=== PATIENT | male | born 1955 | race Caucasian/White ===

== ENCOUNTER → 2018-12-31 | Day surgery (SDC) | payer MEDICARE, BC ==
[~2018-12-31] MED LIST: Propofol 200 MG/20 ML SDV IV ONE
[2018-12-31] MEDS: Lactated Ringers 1,000 ML IV SCH (07:37)
--- NOTE | 2018-12-31 11:25 | OR ---
DATE OF OPERATION: 12/31/2018 PREOPERATIVE DIAGNOSIS: SCREENING COLONOSCOPY. POSTOPERATIVE DIAGNOSIS: SCREENING COLONOSCOPY. SURGEON: Gera Ojeda MD PROCEDURE: FULL-LENGTH COLONOSCOPY. ANESTHESIA: MAC. COMPLICATIONS: None. SPECIMEN: None. FINDINGS: 1. Full-length colonoscopy. 2. No signs of any polyps. 3. Minimal sigmoid diverticulosis. RECOMMENDATIONS: Followup colonoscopy every 10 years. INDICATIONS: The patient was seen for routine physical. We recommended a screening colonoscopy as the patient was 10 years since his last. DESCRIPTION OF PROCEDURE: The patient was prepped and draped, placed in the left lateral decubitus position. A lubricated Olympus colonoscope was inserted and easily advanced to the cecum. Direct visualization of the ileocecal valve and appendiceal orifice was accomplished. The bowel prep was fine. Upon withdrawal of the scope throughout the entire length of the colon, I could find no signs of any polyps, masses, ulcerations, or bleeding sites. No vascular abnormalities or signs of colitis. There were a few scattered diverticula in the sigmoid area, but very minimal. Rectal vault was benign. Retroflexion showed no anal lesions. Air was suctioned, scope removed without complication. EDY/PARUL /[id number]
== END ==
LOC: CC.SDS 07:17
PROVIDERS: ATTEND Family Medicine
DX: Z12.11 Encounter for screening for malignant neoplasm of colon (principal); K57.30 Diverticulosis of large intestine without perforation or abscess without bleeding
CPT/HCPCS: J2704; J7120

== ENCOUNTER → 2021-01-25 | Day surgery (SDC) | payer MEDICARE, BC ==
[~2021-01-25] MED LIST changes: +Lactated Ringers 1,000 ML IV SCH; -Propofol 200 MG/20 ML SDV IV ONE; +Propofol 200 MG/20 ML SDV ONE
--- NOTE | 2021-01-26 13:04 | OR ---
DATE OF OPERATION: 01/25/2021 PREOPERATIVE DIAGNOSIS: IRON-DEFICIENCY ANEMIA. POSTOPERATIVE DIAGNOSIS: IRON-DEFICIENCY ANEMIA. SURGEON: Gera Ojeda MD PROCEDURE: DIAGNOSTIC ESOPHAGOGASTRODUODENOSCOPY WITH BIOPSIES X5, JUAN C. ANESTHESIA: MAC. COMPLICATIONS: None. SPECIMEN: 1. Marisol-pyloric biopsy x3. 2. Antral biopsy x2. 3. Distal esophageal biopsy x1. 4. Biopsies x6 with JUAN C. FINDINGS: 1. Full-length diagnostic EGD. 2. Diffuse and severe antral ulcers, multiple. 3. Marked marisol-pyloric thickening with mass-like effect. 4. Grade 1 linear reflux esophagitis. RECOMMENDATIONS: The patient will be placed on Protonix, told to stop any and all NSAIDs including his aspirin at this time, and he will have close followup for biopsy results. At a minimum, the patient will need a repeat EGD in 6 weeks to ensure healing. INDICATIONS: The patient presented for routine physical without symptoms including epigastric pain. He presented with a low-grade anemia I believe with a hemoglobin of 12, but his MCV was 77. We asked him to do Hemoccults and 3 were positive. He was referred for diagnostic EGD as he had a colonoscopy I believe within the last year or two which was fine. DESCRIPTION OF PROCEDURE: The patient was prepped and draped, placed in the left lateral decubitus position. A lubricated Olympus gastroscope was inserted over a bite-block, advanced to cricopharyngeus area, and easily intubated in the esophagus. The esophageal lining was benign until its most distal portion. The Z-line was crisp and sharp at 40 cm. There was 1 small linear area of esophagitis from reflux and a biopsy was taken of that. The scope was advanced into the stomach, through the pylorus, and into the second portion of the duodenum. This and the duodenal bulb were benign. The scope was brought back into the stomach and retroflexed. The upper fundus and cardia were unremarkable. Upon straightening, the rest of the fundus appeared benign. The antrum shows diffuse inflammation with multiple areas of ulceration and erosion. No active bleeding was found in the pyloric area. In the immediate marisol-pyloric area, the patient has marked gastric wall thickening and inflammation. It appears like there is a healing ulcer in the deep area of that which we could not get into to visualize. We did do 3 biopsies of this thickened tissue which needs to be ruled out for any dysplasia. Air was then suctioned from the stomach and the scope was removed complication. EDY/PARUL /[id number]
== END ==
LOC: CC.SDS 08:13
PROVIDERS: ATTEND Family Medicine
DX: K31.89 Other diseases of stomach and duodenum (principal); I78.1 Nevus, non-neoplastic; K22.10 Ulcer of esophagus without bleeding; K21.9 Gastro-esophageal reflux disease without esophagitis; D50.9 Iron deficiency anemia, unspecified; K25.9 Gastric ulcer, unspecified as acute or chronic, without hemorrhage or perforation; N40.0 Benign prostatic hyperplasia without lower urinary tract symptoms; I42.9 Cardiomyopathy, unspecified; N52.9 Male erectile dysfunction, unspecified; I10 Essential (primary) hypertension; E66.9 Obesity, unspecified; G47.33 Obstructive sleep apnea (adult) (pediatric); E11.9 Type 2 diabetes mellitus without complications; Z79.899 Other long term (current) drug therapy; Z79.4 Long term (current) use of insulin; Z79.84 Long term (current) use of oral hypoglycemic drugs; Z98.890 Other specified postprocedural states; Z68.38 Body mass index [BMI] 38.0-38.9, adult
CPT/HCPCS: 43239; 87081; J2704; J7120

== ENCOUNTER 2022-07-20 16:07 | Emergency (ER) | payer MEDICARE ==
[2022-07-20] MEDS ORDERED: Take Home: Doxycycline 100 MG Cap, 4 Cap Pack PO ONE (16:16)
[2022-07-20] MEDS ORDERED: Bacitracin/Neomycin/Polymyxin B Oint 0.9 GM U/D Packet TOP ONE (16:16)
== END 2022-07-20 16:28 | disposition home or self-care (01) ==
LOC: CC.ED 16:07
DX: L03.115 Cellulitis of right lower limb (principal); Z79.82 Long term (current) use of aspirin
CPT/HCPCS: 99283; A9270-GY